=== PATIENT | male | born 1970 | race Two or more races ===

== ENCOUNTER 2017-09-17 12:14 | Emergency (ER) | payer OTHER ==
[2017-09-17 12:22] VITALS: BMI 31.2
--- NOTE | 2017-09-17 13:13 | PDOC ---
History of Present Illness - General Chief Complaint: Chest Pain Stated Complaint: LT ARM PAIN, CHEST PAIN Time Seen by Provider: 09/17/17 13:12 Past History - Past Medical History Allergies/Adverse Reactions: Allergies Allergy/AdvReac Type Severity Reaction Status Date / Time No Known Allergies Allergy Verified 09/17/17 12:22 Home Medications: Ambulatory Orders Unobtainable [Unobtainable] 06/04/16 COPD: No HTN: Yes Kidney Stones: Yes - Suicide/Smoking/Psychosocial Hx Smoking History: Current some day smoker Number of Cigarettes Smoked Daily: 2 Information on smoking cessation initiated: No Hx Alcohol Use: Yes (SOCIAL) Drug/Substance Use Hx: No Substance Use Type: None *Physical Exam - Vital Signs Last Vital Signs Temp Pulse Resp BP Pulse Ox 98.7 F 108 H 20 147/112 98 09/17/17 12:18 09/17/17 12:18 09/17/17 12:18 09/17/17 12:18 09/17/17 12:18 *DC/Admit/Observation/Transfer - Referrals Referrals: Jackelin Florez MD [Primary Care Provider] - - Patient Instructions - Post Discharge Activity
--- NOTE | 2017-09-17 13:16 | PDOC ---
Attending Attestation - HPI HPI: 09/17/17 14:13 Patient is a 47 year old male with past medical history of hypertension, who presents with chest pain, lasting for approx. two days, radiating to the back and arm, nonpleuritic, intermittent, exacerbating with movement, with associated cramping in legs bilaterally. Patient denies recent fever, chills, headache or dizziness. Patient denies recent nausea, vomiting, constipation or diarrhea. Patient denies shortness of breath. Documentation prepared by Bean Hernandez, acting as center medical and lab director for Brannon Braswell MD. <Bean Hernandez - Last Filed: 09/17/17 14:13> - Resident Resident Name: Carlos Valera - ED Attending Attestation I have performed the following: I have examined & evaluated the patient, The case was reviewed & discussed with the resident, I agree w/resident's findings & plan, Exceptions are as noted - Physicial Exam PE: Patient is awake and alert, resting comfortably, hemodynamically stable nc, atr cta, + left anterior chest wall tenderness to palpation reproducing the patient' s symptoms; rrr sft, nt, nd + Pain with abduction/flexion/extension at the left shoulder; neurovascularly intact distally - Medical Decision Making 09/17/17 16:00 Patient is a 47-year-old male with history of hypertension and hypercholesterolemia who presents to the ER with atypical, reproducible, musculoskeletal chest, arm and leg pain. Serial EKG shows no evidence of acute ischemia. Chest x-ray reveals no evidence of cardiomegaly or infiltrate or effusion. Cardiac enzymes within normal limit. There is no evidence of leukocytosis. I do not suspect a PE at this time. ACS is also highly unlikely. Patient's heart score is 2 and no further workup is required in the ER. Patient had a negative outpatient stress test and 2016. Case discussed with Dr. Mullins of cardiology. Patient will be discharged with outpatient follow-up with Dr. Reveles of cardiology. <Brannon Braswell - Last Filed: 09/17/17 16:01>
[2017-09-17] MEDS ORDERED: ACETAMINOPHEN 325 MG TABLET (FP) PO ONE (13:41)
--- NOTE | 2017-09-17 13:48 | PDOC ---
History of Present Illness - General Chief Complaint: Chest Pain Stated Complaint: LT ARM PAIN, CHEST PAIN Time Seen by Provider: 09/17/17 13:12 History Source: Patient Exam Limitations: No Limitations - History of Present Illness Initial Comments: 09/17/17 13:43 Patient is a 47M with history of HTN here today complaining of chest pain radiating to the back and arm with associated cramping in his legs bilaterally. The pain started 2 days ago after holiday. Patient says that he has been getting some relief from ibuprofen and aspirin. The pain comes and goes. The pain is worse with arm movement. There is no associated shortness of breath or diaphoresis. Patient denies nausea, vomiting, fevers and chills. Denies sick contacts. 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 No history of blood clots. No leg swelling. No recent travel. Past History - Past Medical History Allergies/Adverse Reactions: Allergies Allergy/AdvReac Type Severity Reaction Status Date / Time No Known Allergies Allergy Verified 09/17/17 12:22 Home Medications: Ambulatory Orders Amlodipine Besylate [Norvasc -] 10 mg PO DAILY 09/17/17 Atorvastatin Ca [Lipitor] 10 mg PO HS 09/17/17 COPD: No HTN: Yes Kidney Stones: Yes - Suicide/Smoking/Psychosocial Hx Smoking History: Current some day smoker Number of Cigarettes Smoked Daily: 2 Information on smoking cessation initiated: No Hx Alcohol Use: Yes (SOCIAL) Drug/Substance Use Hx: No Substance Use Type: None Review of Systems - Review of Systems Comments:: 09/17/17 13:47 GENERAL/CONSTITUTIONAL: No fever or chills. HEAD, EYES, EARS, NOSE AND THROAT: No change in vision. No sore throat. CARDIOVASCULAR: Positive for chest pain. Negative for shortness of breath RESPIRATORY: No cough, wheezing, or hemoptysis. GASTROINTESTINAL: No nausea, vomiting, diarrhea or constipation. GENITOURINARY: No dysuria, frequency, or change in urination. MUSCULOSKELETAL: Positive for shoulder pain, neck pain, back pain. SKIN: No rash NEUROLOGIC: No headache, vertigo, loss of consciousness, or change in strength/ sensation. ENDOCRINE: No increased thirst. No abnormal weight change HEMATOLOGIC/LYMPHATIC: No anemia, easy bleeding, or history of blood clots. ALLERGIC/IMMUNOLOGIC: No hives or skin allergy. *Physical Exam - Vital Signs Last Vital Signs Temp Pulse Resp BP Pulse Ox 98.7 F 108 H 20 147/112 98 09/17/17 12:18 09/17/17 12:18 09/17/17 12:18 09/17/17 12:18 09/17/17 12:18 - Physical Exam Comments: 09/17/17 13:49 GENERAL: Awake, alert, and fully oriented, in no acute distress HEAD: No signs of trauma, normocephalic, atraumatic EYES: PERRLA, EOMI, sclera anicteric, conjunctiva clear ENT: Auricles normal inspection, hearing grossly normal, nares patent, oropharynx clear without exudates. Moist mucosa CHEST: Tender to palpation along pectoralis muscle. NECK: Normal ROM, supple, no lymphadenopathy, JVD, or masses, tender to palpation along trapezius on left side ARM. Tender to palpation along left bicep and left deltoid LUNGS: No distress, speaks full sentences, clear to auscultation bilaterally HEART: Regular rate and rhythm, normal S1 and S2, no murmurs, rubs or gallops, peripheral pulses normal and equal bilaterally. EXTREMITIES: Normal inspection, Normal range of motion, no edema. No clubbing or cyanosis. NEUROLOGICAL: Cranial nerves II through XII grossly intact. Normal speech, no focal sensorimotor deficits SKIN: Warm, Dry, normal turgor, no rashes or lesions noted. Heart Score/ECG Review - History History: Slightly suspicious - Electrocardiogram EKG: Normal - Age Age: 45-65 - Risk Factors Risk Factors Heart Score: Yes Hx Hypercholesterolemia, Yes Hx Hypertension Based on the list above the patient has:: 1-2 risk factors - Troponin Troponin: </= normal limit - Score Heart Score - Total: 2 ED Treatment Course - LABORATORY CBC & Chemistry Diagram: 09/17/17 14:15 09/17/17 14:15 - RADIOLOGY Radiology Studies Ordered: Category Date Time Status CHEST PA & LAT [RAD] Stat Radiology 09/17/17 13:35 Ordered Medical Decision Making - Medical Decision Making 09/17/17 13:51 47M here today with chest pain. Vital signs stable and normal. Exam consistent with musculoskeletal pain, will attempt one trop rule out. EKG shows borderline right axis, normal rate, normal rhythm, normal sinus. No st elevations/depressions. No t wave abnormalities. 09/17/17 14:54 Patient stated that his pain returned and worsened. Still reproducible. Repeat EKG shows normal sinus rhythm, normal axis, normal rate, no st elevations/ depressions. No t-wave abnormalities. 09/17/17 15:18 Laboratory Tests 09/17/17 09/17/17 14:15 14:15 WBC 7.4 Hgb 15.3 Hct 47.3 Plt Count 286 BUN 13 Creatinine 1.0 Troponin I < 0.02 CBC normal. Trop neg. CMP normal. 09/17/17 15:20 HEART score 2. Patient had negative stress test in June 30. Will discharge with PCP and cards follow up and return precautions. 09/17/17 15:42 HR 66. *DC/Admit/Observation/Transfer Diagnosis at time of Disposition: Atypical chest pain - Discharge Dispostion Disposition: HOME Condition at time of disposition: Good Admit: No - Referrals Referrals: Jackelin Florez MD [Primary Care Provider] - Heriberto French MD [Staff Physician] - - Patient Instructions Printed Discharge Instructions: DI for Atypical Chest Pain Additional Instructions: Please return if you have any new, worsening or concerning symptoms. Please follow up with your PCP next week. - Post Discharge Activity Forms/Work/School Notes: Back to Work
[2017-09-17] MEDS ORDERED: SODIUM CHLORIDE 1,000 ML IV STA (14:17)
[2017-09-17 14:23] LABS: BASO % 0.7 % (0-2.0); EOS % 0.2 % (0-4.5); HEMATOCRIT 47.3 % (35.4-49); HEMOGLOBIN 15.3 GM/dL (11.7-16.9); LYMPH % 21.3 % (8-40); MCH 30.1 pg (25.7-33.7); MCHC 32.3 g/dl (32.0-35.9); MEAN CELL VOLUME 93.3 fl (80-96); MEAN PLT VOLUME 7.5 fl (7.5-11.1); MONO % 12.8 % (3.8-10.2); PLATELET COUNT 286 K/MM3 (134-434); RBC 5.07 M/mm3 (4.00-5.60); RDW 12.4 % (11.9-15.9); WHITE BLOOD COUNT 7.4 K/mm3 (4.0-10.0)
[2017-09-17] MEDS ORDERED: ACETAMINOPHEN 325 MG TABLET (FP) ONE (14:33)
[2017-09-17 14:36] LABS: INR 1.19 (0.82-1.09); PROTHROMBIN TIME (PATIENT) 13.4 SEC (9.98-11.88)
[2017-09-17 14:55] LABS: ALBUMIN 3.9 g/dl (3.4-5.0); ANION GAP 10 (8-16); BILIRUBIN,TOTAL 0.6 mg/dL (0.2-1.0); BLOOD UREA NITROGEN 13 mg/dL (7-18); CALCIUM 9.4 mg/dL (8.5-10.1); CHLORIDE 106 mmol/L (98-107); CO2 26 mmol/L (21-32); GLUCOSE,RANDOM 102 mg/dL (74-106); MAGNESIUM 2.2 mg/dL (1.8-2.4); POTASSIUM 4.2 mmol/L (3.5-5.1); SGOT/AST 19 U/L (15-37); SGPT/ALT 33 U/L (12-78); SODIUM 142 mmol/L (136-145); TOT PROT 7.4 g/dl (6.4-8.2)
[2017-09-17 14:58] LABS: ALK PHOS 108 U/L (45-117)
[2017-09-17 15:54] VITALS: BP 149/111; PULSE 63; TEMP 97.2
--- NOTE | 2017-09-17 16:52 | EKG ---
Test Reason : Blood Pressure : / mmHG Vent. Rate : 090 BPM Atrial Rate : 090 BPM P-R Int : 132 ms QRS Dur : 088 ms QT Int : 360 ms P-R-T Axes : 065 091 049 degrees QTc Int : 440 ms NORMAL SINUS RHYTHM POSSIBLE LEFT ATRIAL ENLARGEMENT RIGHTWARD AXIS BORDERLINE ECG WHEN COMPARED WITH ECG OF 04-JUN-2016 09:27, NO SIGNIFICANT CHANGE WAS FOUND Confirmed by ELVIS FAY MD ([id number]) on 09/17/2017 4:51:51 PM Referred By: Confirmed By:ELVIS FAY MD
--- NOTE | 2017-09-18 12:31 | EKG ---
Test Reason : Blood Pressure : / mmHG Vent. Rate : 069 BPM Atrial Rate : 069 BPM P-R Int : 134 ms QRS Dur : 084 ms QT Int : 392 ms P-R-T Axes : 053 010 043 degrees QTc Int : 420 ms NORMAL SINUS RHYTHM POSSIBLE LEFT ATRIAL ENLARGEMENT BORDERLINE ECG WHEN COMPARED WITH ECG OF 17-SEP-2017 12:25, NO SIGNIFICANT CHANGE WAS FOUND Confirmed by HARMAN HOOD MD ([id number]) on 09/18/2017 12:30:36 PM Referred By: Confirmed By:HARMAN HOOD MD
== END 2017-09-17 16:01 | disposition home or self-care (01) ==
LOC: JER 12:14
PROC: 3E0337Z Introduction of Electrolytic and Water Balance Substance into Peripheral Vein, Percutaneous Approach (ICD-10-PCS; principal; 2017-09-17)
DX: R07.89 Other chest pain (principal); I10 Essential (primary) hypertension; E78.00 Pure hypercholesterolemia, unspecified
CPT/HCPCS: 36415; 71046-TC; 80053; 82550; 83735; 84484; 85025; 85610; 93005; 93010; 99285-25

== ENCOUNTER 2023-10-30 10:20 | Emergency (ER) | payer OTHER ==
[2023-10-30 10:28] VITALS: BP 154/93; PULSE 99; RESP 18; TEMP 98.2; BMI 26.4
[2023-10-30] MEDS ORDERED: ACETAMINOPHEN INJECTION 100 ML IVPB ONE (12:30)
[2023-10-30] MEDS: ACETAMINOPHEN 1000 MG/100 ML BAG IVPB ONE (12:44)
[2023-10-30] MEDS: SODIUM CHLORIDE 1,000 ML IV ONE (12:45)
[2023-10-30 12:51] LABS: BASO % 0.3 % (0-2.0); EOS % 0.4 % (0-4.5); HEMATOCRIT 45.7 % (35.4-49); HEMOGLOBIN 15.1 GM/dL (11.7-16.9); LYMPH % 9.3 % (8-40); MCH 31.3 pg (25.7-33.7); MCHC 33.1 g/dl (32.0-35.9); MEAN CELL VOLUME 94.5 fl (80-96); MEAN PLT VOLUME 7.3 fl (7.5-11.1); MONO % 10.9 % (3.8-10.2); NEUT % 79.1 % (42.8-82.8); PLATELET COUNT 257 10^3/uL (134-434); RBC 4.83 M/mm3 (4.00-5.60); RDW 12.4 % (11.9-15.9); WHITE BLOOD COUNT 9.3 K/mm3 (4.0-10.0)
[2023-10-30 12:53] LABS: EPI CELLS 3 /uL (0-25.1); HYALINE CASTS 1 /uL (0-3.1); PH,URINE 5.5 (5.0-8.0); URINE APPEARANCE CLEAR; URINE BACTERIA 3 /uL (0-1359); URINE BILIRUBIN 1+ (NEGATIVE); URINE COLOR DK YELLOW; URINE GLUCOSE (UA) NEGATIVE (NEGATIVE); URINE KETONE TRACE (NEGATIVE); URINE LEUK ESTERASE NEGATIVE (NEGATIVE); URINE NITRITE NEGATIVE (NEGATIVE); URINE PROTEIN 1+ (NEGATIVE); URINE RBC 8 /uL (0-23.9); URINE UROBILINOGEN 0.2 mg/dL (0.2-1.0); URINE WBC 6 /uL (0-25.8)
[2023-10-30 13:12] LABS: POTASSIUM 4.4 mmol/L (3.5-5.1)
[2023-10-30 13:15] LABS: BLOOD UREA NITROGEN 10.9 mg/dL (7-18)
[2023-10-30 13:16] LABS: CALCIUM 9.2 mg/dL (8.5-10.1)
[2023-10-30 13:18] LABS: CREATININE 0.9 mg/dL (0.55-1.3)
[2023-10-30 13:19] LABS: BILIRUBIN,TOTAL 0.8 mg/dL (0.2-1); TOT PROT 8.1 g/dl (6.4-8.2)
== END 2023-10-30 14:03 | disposition home or self-care (01) ==
LOC: JERFT 10:20
PROC: 3E033NZ Introduction of Analgesics, Hypnotics, Sedatives into Peripheral Vein, Percutaneous Approach (ICD-10-PCS; principal; 2023-10-30)
PROC: 3E0337Z Introduction of Electrolytic and Water Balance Substance into Peripheral Vein, Percutaneous Approach (ICD-10-PCS; 2023-10-30)
DX: R10.84 Generalized abdominal pain (principal); R11.10 Vomiting, unspecified; R19.7 Diarrhea, unspecified; M79.10 Myalgia, unspecified site; A08.4 Viral intestinal infection, unspecified; Z20.822 Contact with and (suspected) exposure to COVID-19
CPT/HCPCS: 0241U-QW; 36415; 80053; 81003; 83690; 85025; 99284-25; J0131